=== PATIENT | male | born 1990 | race Caucasian/White ===

== ENCOUNTER → 2020-07-19 | Outpatient (CLI) | payer OTHER ==
[~2020-07-19] MED LIST: IBUP-1022 PO; PROP20TA72 PO; SUMA25TA3 PO
== END ==
LOC: M LABSMTC 09:31
PROVIDERS: ATTEND Anesthesiology
DX: Z01.812 Encounter for preprocedural laboratory examination (principal); Z20.822 Contact with and (suspected) exposure to COVID-19

== ENCOUNTER 2020-07-24 07:36 | Day surgery (SDC) | payer OTHER ==
[~2020-07-24] VITALS: Ht 180.3 cm; Wt 70.7 kg
[~2020-07-24 07:36] MED LIST changes: +AMPICILLIN SOD/SULBACTAM SOD 3 GM in D5W MINI-BAG PLUS 100 ML IV ONE; -IBUP-1022 PO; +LR 1,000 ML IV ONE; -PROP20TA72 PO; -SUMA25TA3 PO; +dexameTHASONE 4 MG/ML 1ML VIAL (J1100 PER 1MG) IV ONE
[2020-07-24] MEDS ORDERED: PROP20TA72 PO (07:51)
[2020-07-24] MEDS ORDERED: SUMA25TA3 PO (07:51)
[2020-07-24] MEDS ORDERED: IBUP-1022 PO (07:52)
[2020-07-24] MEDS ORDERED: LIDOCAINE 2% W/ EPINEPHRINE 1.7 ML DENTAL INJ As Ordered ONE (09:12)
[2020-07-24] MEDS ORDERED: fentaNYL 100 MCG/2 ML INJECTION (J3010) As Ordered ONE ×2 (09:39→09:51)
[2020-07-24] MEDS ORDERED: ROCURONIUM BROMIDE 50 MG/5 ML VIAL As Ordered ONE (09:39)
[2020-07-24] MEDS ORDERED: propofoL 200 MG/20 ML VIAL As Ordered ONE (09:39)
[2020-07-24] MEDS ORDERED: dexameTHASONE 4 MG/ML 1ML VIAL (J1100 PER 1MG) As Ordered ONE (09:39)
[2020-07-24] MEDS ORDERED: SUGAMMADEX SODIUM 500 MG/5 ML VIAL (BRIDION) As Ordered ONE (09:39)
[2020-07-24] MEDS ORDERED: MIDAZOLAM INJ 2MG/2ML VIAL (J2250 PER 1MG) As Ordered ONE (09:39)
[2020-07-24] MEDS ORDERED: KETOROLAC 60MG 2ML VIAL As Ordered ONE (09:39)
[2020-07-24] MEDS ORDERED: ONDANSETRON 4MG/2ML VIAL As Ordered ONE (09:39)
[2020-07-24] MEDS ORDERED: LIDOCAINE 2% 100MG/5ML SDV (FOR ANES.) As Ordered ONE (09:39)
[2020-07-24] MEDS ORDERED: METOCLOPRAMIDE INJ 10MG/2ML VIAL (J2765 PER 1) IV PRN (10:50)
[2020-07-24] MEDS ORDERED: LR 1,000 ML IV SCH (10:50)
[2020-07-24] MEDS ORDERED: fentaNYL 100 MCG/2 ML INJECTION (J3010) IV PRN (10:50)
[2020-07-24] MEDS ORDERED: oxyCODONE 5MG TAB PO PRN (10:50)
[2020-07-24] MEDS ORDERED: ONDANSETRON 4MG/2ML VIAL IV PRN (10:50)
--- NOTE | 2020-07-24 11:42 | RO ---
OPERATIVE NOTE DATE OF OPERATION: 07/24/2020 PREOPERATIVE DIAGNOSES: 1. History of seizures and severe dental anxiety. 2. Hopeless lower dentition including teeth 19, 20, 21, 22, 23, 24, 26, 27, 28, 29, and 30. POSTOPERATIVE DIAGNOSES: Status post the above. PROCEDURE PERFORMED: Extraction of the aforementioned teeth. SURGEON: Sugar Thomas DMD DENTAL ASSISTANT TEACHER: None. ANESTHESIA: General endotracheal via nasal YNES. SPECIMEN: Tooth for gross only. INDICATIONS FOR PROCEDURE: Mr. Fermin is a pleasant 30-year-old male referred to me by his dentist for evaluation for extraction of all of his lower teeth. He does report that he is severely anxious and wants to have general anesthesia. I did offer IV conscious sedation in the office and he declined. He wants to be unconscious for the procedure. Clinical exam reveals grossly decayed lower teeth with stainless steel crowns on 19 and 30 with gross caries. He does not have any teeth in the maxilla, as he is edentulous. All the risks, benefits, and alternatives were explained to the patient. A complete history and physical is in the patient's chart, as well as an informed consent, which was explained and is also in the patient's chart. DESCRIPTION OF PROCEDURE: The patient presented to preop holding. Any last minute questions were addressed. At that point, the patient was taken back to the operating room and was laid supine on the operating room table. Ulnar nerve protectors were placed. Noninvasive cardiac monitors were applied. At that point, the patient underwent general anesthesia, was intubated with a nasal YNES, which was secured to the patient's forehead. He was then prepped and draped in the usual sterile fashion. A time-out procedure was performed identifying the patient, the procedure, and any other precautions. Preoperative steroids and antibiotics were administered in the IV. A moist throat pack was inserted into the patient's oropharynx followed by administration of 2% Lidocaine with 1:100,000 epinephrine as local infiltration and block. A full-thickness flap was then released. Excised teeth 19, 20, 21, 22, 27, 28, 29, and 30. Small buccal trough was made and teeth were luxated and delivered with ease. Routine extractions of teeth 23, 24, and 26 was performed. So at this point once all of the teeth were removed, alveoloplasty was performed in both lower quadrants. The flaps were then closed with 3-0 Chromic sutures. The oral cavity was irrigated and suctioned. Throat pack was removed. The patient was then awakened from general anesthesia and taken back to the PACU. COMPLICATIONS: None to mention at the time of surgery. ESTIMATED BLOOD LOSS: 20 mL. DRAINS: None placed.
[2020-07-24 12:00] VITALS: BP 119/70
== END 2020-07-24 12:00 | disposition home or self-care (01) ==
LOC: M SDC 07:36
PROVIDERS: ATTEND Dentist
DX: K02.9 Dental caries, unspecified (principal); G40.909 Epilepsy, unspecified, not intractable, without status epilepticus; Z79.899 Other long term (current) drug therapy; G43.909 Migraine, unspecified, not intractable, without status migrainosus; F41.9 Anxiety disorder, unspecified; F32.9 Major depressive disorder, single episode, unspecified; F43.10 Post-traumatic stress disorder, unspecified; F17.220 Nicotine dependence, chewing tobacco, uncomplicated
CPT/HCPCS: 88300; D7210; D7310; D9223; J1100; J1885; J2250; J2405; J3010

== ENCOUNTER 2021-01-14 02:46 | Emergency (ER) | payer OTHER ==
[~2021-01-14] VITALS: Ht 180.3 cm; Wt 68.2 kg
[~2021-01-14 02:46] MED LIST changes: -AMPICILLIN SOD/SULBACTAM SOD 3 GM in D5W MINI-BAG PLUS 100 ML IV ONE; +IBUP-1022 PO; -LR 1,000 ML IV ONE; +PROP20TA72 PO; +SUMA25TA3 PO; -dexameTHASONE 4 MG/ML 1ML VIAL (J1100 PER 1MG) IV ONE
--- NOTE | 2021-01-14 04:17 | REPVR ---
PROCEDURE INFORMATION: Exam: XR Right Forearm Exam date and time: 01/14/2021 3:23 AM Age: 30 years old Clinical indication: Pain; Lower or forearm; Right; Additional info: Injury TECHNIQUE: Imaging protocol: XR Right forearm. Views: 2 views. COMPARISON: No relevant prior studies available. FINDINGS: Bones/joints: Bones are intact. No fracture. No dislocation. Soft tissues: Faint 8 mm density along the ulnar soft tissues of the proximal forearm. IMPRESSION: Faint 8 mm density along the ulnar soft tissues of the proximal forearm. Correlate with any soft tissue injury in this region as a small soft tissue foreign body cannot be excluded. No acute bony abnormality. Electronically signed by: Js Parry On 01/14/2021 04:16:44 AM
--- NOTE | 2021-01-14 04:21 | REPVR ---
PROCEDURE INFORMATION: Exam: XR Right Elbow Exam date and time: 01/14/2021 3:23 AM Age: 30 years old Clinical indication: Pain; Elbow; Right; Additional info: Injury TECHNIQUE: Imaging protocol: XR Right elbow. Views: 3 or more views. COMPARISON: CR Forearm Radius,Ulna RIGHT 01/14/2021 3:00:35 AM FINDINGS: Bones/joints: Bones are intact. No fracture. No dislocation. Soft tissues: As noted on concurrent forearm series, there is a faint 8 mm radiodensity along the ulnar soft tissues of the proximal forearm. No elbow joint effusion. IMPRESSION: Faint 8 mm radiodensity along the ulnar soft tissues of the proximal forearm, as discussed on concurrent forearm series. No acute fracture or dislocation. Electronically signed by: Js Parry On 01/14/2021 04:21:27 AM
--- NOTE | 2021-01-14 04:29 | REPVR ---
PROCEDURE INFORMATION: Exam: XR Right Hand Exam date and time: 01/14/2021 3:23 AM Age: 30 years old Clinical indication: Pain; Hand; Right; Additional info: Injury TECHNIQUE: Imaging protocol: XR Right hand. Views: 3 or more views. COMPARISON: No relevant prior studies available. FINDINGS: Bones/joints: Bones are intact. No fracture. No dislocation. Soft tissues: Unremarkable. IMPRESSION: No acute bony abnormality. Electronically signed by: Js Parry On 01/14/2021 04:28:51 AM
[2021-01-14] MEDS ORDERED: BOOSTRIX/ADACEL VACCINE (DIPHTH/PERTUSS/ACELL/TETANUS) 0.5ML SYR IM ONE (06:25)
[2021-01-14] MEDS ORDERED: NEOSPORIN OINT 0.9 GM PKT TOP ONE (06:25)
[2021-01-14 06:43] VITALS: BP 128/68; O2SAT 98
== END 2021-01-14 06:45 | disposition home or self-care (01) ==
LOC: M ED 02:46
DX: S50.311A Abrasion of right elbow, initial encounter (principal); S50.01XA Contusion of right elbow, initial encounter; B07.8 Other viral warts; W22.09XA Striking against other stationary object, initial encounter; Y92.89 Other specified places as the place of occurrence of the external cause; Y93.89 Activity, other specified; Y99.9 Unspecified external cause status; G40.909 Epilepsy, unspecified, not intractable, without status epilepticus; G43.909 Migraine, unspecified, not intractable, without status migrainosus; F17.220 Nicotine dependence, chewing tobacco, uncomplicated; Z79.899 Other long term (current) drug therapy; Z88.6 Allergy status to analgesic agent